=== PATIENT | male | born 1950 | race African-American/Black ===

== ENCOUNTER 2020-04-06 11:50 | Inpatient (IN) ==
[2020-04-06] MEDS ORDERED: VANCOMYCIN INJ 1,250 MG in SODIUM CHLORIDE 0.9% 250 ML IV STA (13:42)
[2020-04-06 14:11] LABS: Basophils % 0.3 % (0.0-0.8); Eosinophils % 0.1 % (0.00-10.9); Hematocrit 24.2 VOL% (42.0-52.0); Hemoglobin 7.9 GM/DL (14.0-18.0); Immature Granulocytes % 1.2 %; Immature Granulocytes Absolute 0.19 #; Lymphocytes # 0.4 10*3/uL (1.4-4.0); Lymphocytes % 2.3 % (21.2-54.2); Mean Corpuscular HGB Conc 32.6 GM/DL (32-36); Mean Corpuscular Volume 101.3 FL (87-102); Mean Platelet Volume 10.5 FL (9.6-12.0); Monocytes % 8.6 % (1.7-12.7); Neutrophils % 87.5 % (38.7-73.9); Platelet Count 136 T/CUMM (130-400); Red Blood Count 2.39 MC/CUMM (3.8-5.5); Red Cell Distribution Width 17.3 % (9.3-17.3); White Blood Count 15.5 T/CUMM (4-12)
[2020-04-06 14:31] LABS: Alanine Aminotransferase 35 U/L (16-61); Albumin 3.1 G/DL (3.4-5.0); Alkaline Phosphatase 179 U/L (45-117); Aspartate Amino Transferase 40 U/L (0-37); Blood Urea Nitrogen 19 MG/DL (7-18); Calcium 9.3 MG/DL (8.5-10.1); Carbon Dioxide 24 MMOL/L (21-32); Estimated Glom Filtration Rate 106 ML/MIN; Glucose 125 MG/DL (74-106); Potassium 4.3 MMOL/L (3.5-5.1); Sodium 136 MMOL/L (136-145); Total Protein 7.5 G/DL (6.4-8.3)
[2020-04-06 14:36] LABS: Lymphocytes 3 % (20-55); Segmented Neutrophils 87 % (50-85); Total Cells Counted 100
[2020-04-06 14:37] LABS: Anisocytosis 2+; Macrocytosis 2+; Microcytosis 1+; Platelet Estimate Adequate; Toxic Granulation 1+
[2020-04-06] MEDS ORDERED: DEXTROSE 50% 25 GM/50 ML VIAL IV PRN (15:36)
[2020-04-06] MEDS ORDERED: GLUCAGON 1 MG VIAL IM PRN (15:36)
[2020-04-06] MEDS ORDERED: ONDANSETRON 4 MG/2 ML VIAL IV PRN (15:36)
[2020-04-06] MEDS ORDERED: hydrALAZINE 20 MG/1 ML VIAL IV PRN (15:54)
[2020-04-06] MEDS ORDERED: PANTOPRAZOLE 40 MG TABLET PO SCH (16:00)
[2020-04-06] MEDS ORDERED: ACETAMINOPHEN 325 MG TABLET PO PRN (17:24)
[2020-04-06] MEDS ORDERED: ACETAMINOPHEN 500 MG TABLET PO STA (17:25)
[2020-04-06] MEDS: ATORVASTATIN 80 MG TABLET PO SCH (20:28)
[2020-04-06] MEDS: METOPROLOL TARTRATE 25 MG TABLET PO SCH (20:28)
[2020-04-06] MEDS: LOSARTAN 50 MG TABLET PO SCH (20:28)
[2020-04-06] MEDS: PANTOPRAZOLE 40 MG TABLET PO SCH (20:28)
[2020-04-06] MEDS: SODIUM CHLORIDE 0.9% 1,000 ML IV SCH (20:29)
[2020-04-06] MEDS: PIPERACILLIN/TAZOBACTAM 3,375 MG in SODIUM CHLORIDE 0.9% 100 ML IV SCH (20:29)
[2020-04-07 05:37] LABS: Basophils % 0.2 % (0.0-0.8); Eosinophils % 0.2 % (0.00-10.9); Hematocrit 20.3 VOL% (42.0-52.0); Hemoglobin 6.7 GM/DL (14.0-18.0); Immature Granulocytes % 0.8 %; Immature Granulocytes Absolute 0.11 #; Lymphocytes # 0.3 10*3/uL (1.4-4.0); Lymphocytes % 2.1 % (21.2-54.2); Mean Platelet Volume 10.5 FL (9.6-12.0); Monocytes % 9.8 % (1.7-12.7); Neutrophils % 86.9 % (38.7-73.9); Platelet Count 118 T/CUMM (130-400); Red Blood Count 2.03 MC/CUMM (3.8-5.5); Red Cell Distribution Width 17.2 % (9.3-17.3); White Blood Count 13.1 T/CUMM (4-12)
[2020-04-07 06:00] LABS: Albumin 2.5 G/DL (3.4-5.0); Bilirubin,Total 1.8 MG/DL (0.2-1.0); Potassium 4.1 MMOL/L (3.5-5.1); Risk Ratio 4.13; Total Protein 6.5 G/DL (6.4-8.3)
[2020-04-07 06:03] LABS: Band Neutrophils 24 % (0-10); Eosinophils 2 % (0-10); Metamyelocytes 1 %; Platelet Estimate Adequate; Segmented Neutrophils 67 % (50-85); Total Cells Counted 100; Toxic Granulation 1+
[2020-04-07 06:04] LABS: Anisocytosis 1+; Macrocytosis 1+; Target Cells Few; Tear Drop Cells Few
[2020-04-07] MEDS: PIPERACILLIN/TAZOBACTAM 3,375 MG in SODIUM CHLORIDE 0.9% 100 ML IV SCH ×2 (06:14→17:13)
[2020-04-07] MEDS ORDERED: LIDOCAINE 2% 5 ML VIAL ONE (06:22)
[2020-04-07] MEDS ORDERED: ONDANSETRON 4 MG/2 ML VIAL ONE (06:22)
[2020-04-07] MEDS ORDERED: propofoL 200 MG/20 ML VIAL IV ONE (06:22)
[2020-04-07] MEDS ORDERED: LACTATED RINGERS 1,000 ML IV SCH (07:00)
[2020-04-07] MEDS ORDERED: BUPIVACAINE MPF 0.25% 30 ML VIAL ONE (07:02)
[2020-04-07] MEDS ORDERED: LIDOCAINE 1% 20 ML VIAL ONE (07:02)
[2020-04-07] MEDS ORDERED: MIDAZOLAM 2 MG/2 ML VIAL ONE (07:25)
[2020-04-07] MEDS ORDERED: fentaNYL 100 MCG/2 ML VIAL ONE (07:33)
[2020-04-07] MEDS ORDERED: METOPROLOL TARTRATE 5 MG/5 ML VIAL IV ONE (08:15)
[2020-04-07] MEDS ORDERED: SODIUM CHLORIDE 0.9% 1,000 ML IV PRN (08:17)
[2020-04-07] MEDS: LOSARTAN 50 MG TABLET PO SCH (10:23)
[2020-04-07] MEDS: METOPROLOL TARTRATE 25 MG TABLET PO SCH ×2 (10:24→20:41)
[2020-04-07] MEDS: PANTOPRAZOLE 40 MG TABLET PO SCH (10:24)
[2020-04-07] MEDS ORDERED: DILTIAZEM 25 MG/5 ML VIAL IV ONE (14:39)
[2020-04-07] MEDS: SODIUM CHLORIDE 0.9% 1,000 ML IV SCH ×2 (16:50→18:06)
[2020-04-07] MEDS: ATORVASTATIN 80 MG TABLET PO SCH (20:41)
[2020-04-07] MEDS: VANCOMYCIN INJ 1,250 MG in SODIUM CHLORIDE 0.9% 250 ML IV SCH (20:48)
[2020-04-07 22:34] LABS: Bacteria,Urine Occasional /HPF (Few); Bilirubin,Urine Negative (Negative); Blood, Urine Negative (Negative); Glucose,Urine (UA) Negative (Negative); Ketones,Urine Negative (Negative); Mucus,Urine Occasional /LPF (Occasional); Nitrite,Urine Negative (Negative); Protein,Urine 100 MG/DL; RBC,Urine 3 /HPF (0-4); Squamous Epithelial Cell,Urine Occasional /HPF (0-10); Urine Appearance CLEAR (Clear); Urine Color Amber (Yellow); Urine Specific Gravity 1.024 (1.001-1.035); Urine Urobilinogen < 2.0 EU/DL (0.2-1.0); WBC,Urine 2 /HPF (0-6)
[2020-04-08] MEDS: PIPERACILLIN/TAZOBACTAM 3,375 MG in SODIUM CHLORIDE 0.9% 100 ML IV SCH ×3 (02:00→17:06)
[2020-04-08] MEDS: SODIUM CHLORIDE 0.9% 1,000 ML IV SCH ×3 (03:37→22:10)
[2020-04-08] MEDS: VANCOMYCIN INJ 1,250 MG in SODIUM CHLORIDE 0.9% 250 ML IV SCH ×2 (04:32→17:46)
[2020-04-08] MEDS: PANTOPRAZOLE 40 MG TABLET PO SCH (08:41)
[2020-04-08] MEDS: METOPROLOL TARTRATE 25 MG TABLET PO SCH ×2 (08:41→20:17)
[2020-04-08] MEDS: LOSARTAN 50 MG TABLET PO SCH (08:41)
[2020-04-08 08:54] LABS: Basophils % 0.4 % (0.0-0.8); Eosinophils % 0.4 % (0.00-10.9); Hematocrit 24.3 VOL% (42.0-52.0); Hemoglobin 8.1 GM/DL (14.0-18.0); Immature Granulocytes % 1.5 %; Immature Granulocytes Absolute 0.08 #; Lymphocytes # 0.2 10*3/uL (1.4-4.0); Lymphocytes % 3.1 % (21.2-54.2); Mean Corpuscular HGB Conc 33.3 GM/DL (32-36); Mean Platelet Volume 9.5 FL (9.6-12.0); Neutrophils % 80.6 % (38.7-73.9); Platelet Count 102 T/CUMM (130-400); Red Blood Count 2.53 MC/CUMM (3.8-5.5); Red Cell Distribution Width 17.4 % (9.3-17.3); White Blood Count 5.5 T/CUMM (4-12)
[2020-04-08 09:28] LABS: Albumin 2.2 G/DL (3.4-5.0); Bilirubin,Total 1.2 MG/DL (0.2-1.0); Calcium 8.6 MG/DL (8.5-10.1); Osmolality,Calculated 273.8 MOS/KG (273-304); Potassium 3.7 MMOL/L (3.5-5.1); Total Protein 6.2 G/DL (6.4-8.3)
[2020-04-08 09:30] LABS: Band Neutrophils 1 % (0-10); Eosinophils 2 % (0-10); Hypochromasia 1+; Lymphocytes 2 % (20-55); Microcytosis 1+; Ovalocytes Slight; Platelet Estimate Decreased; Segmented Neutrophils 82 % (50-85); Total Cells Counted 100
[2020-04-08] MEDS ORDERED: POTASSIUM CHLORIDE 20 MEQ TABLET PO ONE (10:28)
[2020-04-08] MEDS: ASCORBIC ACID 500 MG TABLET PO SCH ×2 (11:22→20:18)
[2020-04-08] MEDS: ATORVASTATIN 80 MG TABLET PO SCH (20:19)
[2020-04-09] MEDS: PIPERACILLIN/TAZOBACTAM 3,375 MG in SODIUM CHLORIDE 0.9% 100 ML IV SCH (02:07)
[2020-04-09 04:55] LABS: Basophils % 0.4 % (0.0-0.8); Eosinophils # 0.1 10*3/uL (0.0-0.87); Hematocrit 24.2 VOL% (42.0-52.0); Hemoglobin 8.1 GM/DL (14.0-18.0); Immature Granulocytes % 0.8 %; Immature Granulocytes Absolute 0.04 #; Lymphocytes # 0.3 10*3/uL (1.4-4.0); Mean Corpuscular HGB Conc 33.5 GM/DL (32-36); Mean Corpuscular Volume 95.3 FL (87-102); Mean Platelet Volume 9.7 FL (9.6-12.0); Monocytes % 14.5 % (1.7-12.7); Neutrophils % 77.3 % (38.7-73.9); Platelet Count 104 T/CUMM (130-400); Red Blood Count 2.54 MC/CUMM (3.8-5.5); Red Cell Distribution Width 16.8 % (9.3-17.3); White Blood Count 4.8 T/CUMM (4-12)
[2020-04-09] MEDS: VANCOMYCIN INJ 1,250 MG in SODIUM CHLORIDE 0.9% 250 ML IV SCH (05:07)
[2020-04-09 05:18] LABS: Band Neutrophils 1 % (0-10); Eosinophils 1 % (0-10); Lymphocytes 5 % (20-55); Platelet Estimate Adequate; Segmented Neutrophils 89 % (50-85); Total Cells Counted 100
[2020-04-09 05:19] LABS: Hypochromasia Slight
[2020-04-09 05:29] LABS: Albumin 2.4 G/DL (3.4-5.0); Calcium 8.4 MG/DL (8.5-10.1); Osmolality,Calculated 275.7 MOS/KG (273-304); Potassium 3.4 MMOL/L (3.5-5.1)
[2020-04-09] MEDS ORDERED: POTASSIUM CHLORIDE 20 MEQ TABLET PO ONE (08:00)
[2020-04-09] MEDS: METOPROLOL TARTRATE 25 MG TABLET PO SCH (08:29)
[2020-04-09] MEDS: ASCORBIC ACID 500 MG TABLET PO SCH ×2 (08:30→20:31)
[2020-04-09] MEDS: PANTOPRAZOLE 40 MG TABLET PO SCH (08:30)
[2020-04-09] MEDS: LOSARTAN 50 MG TABLET PO SCH (08:30)
[2020-04-09] MEDS: SODIUM CHLORIDE 0.9% 1,000 ML IV SCH ×2 (08:37→18:27)
[2020-04-09] MEDS ORDERED: LOSARTAN 50 MG TABLET PO SCH (10:45)
[2020-04-09] MEDS ORDERED: METOPROLOL TARTRATE 25 MG TABLET PO ONE (11:00)
[2020-04-09] MEDS ORDERED: POTASSIUM CHLORIDE 20 MEQ TABLET PO SCH (11:00)
[2020-04-09] MEDS ORDERED: LOSARTAN 50 MG TABLET PO ONE (11:00)
[2020-04-09] MEDS: POTASSIUM CHLORIDE 20 MEQ/15 ML UDCUP PER TUBE SCH ×2 (11:12→20:28)
[2020-04-09] MEDS: METOPROLOL TARTRATE 100 MG TABLET PO SCH (20:31)
[2020-04-10] MEDS: SODIUM CHLORIDE 0.9% 1,000 ML IV SCH ×3 (04:08→14:32)
[2020-04-10 05:45] LABS: Basophils % 0.4 % (0.0-0.8); Eosinophils # 0.1 10*3/uL (0.0-0.87); Eosinophils % 1.6 % (0.00-10.9); Hematocrit 24.5 VOL% (42.0-52.0); Hemoglobin 8.3 GM/DL (14.0-18.0); Immature Granulocytes % 0.9 %; Immature Granulocytes Absolute 0.04 #; Lymphocytes # 0.3 10*3/uL (1.4-4.0); Lymphocytes % 6.7 % (21.2-54.2); Mean Corpuscular HGB Conc 33.9 GM/DL (32-36); Mean Corpuscular Volume 95.3 FL (87-102); Mean Platelet Volume 10.2 FL (9.6-12.0); Monocytes % 14.5 % (1.7-12.7); Neutrophils % 75.9 % (38.7-73.9); Platelet Count 101 T/CUMM (130-400); Red Blood Count 2.57 MC/CUMM (3.8-5.5); Red Cell Distribution Width 16.5 % (9.3-17.3); White Blood Count 4.5 T/CUMM (4-12)
[2020-04-10 06:13] LABS: Eosinophils 2 % (0-10); Hypochromasia 1+; Lymphocytes 2 % (20-55); Microcytosis 1+; Platelet Estimate Decreased; Segmented Neutrophils 80 % (50-85); Total Cells Counted 100
[2020-04-10 06:16] LABS: Calcium 8.7 MG/DL (8.5-10.1); Osmolality,Calculated 274.5 MOS/KG (273-304); Potassium 3.8 MMOL/L (3.5-5.1)
[2020-04-10] MEDS ORDERED: MAGNESIUM SULF RIDER 2 GM in PREMIX 1 EACH IV ONE (08:12)
[2020-04-10] MEDS: ASCORBIC ACID 500 MG TABLET PO SCH ×2 (09:16→21:07)
[2020-04-10] MEDS: PANTOPRAZOLE 40 MG TABLET PO SCH (09:16)
[2020-04-10] MEDS: METOPROLOL TARTRATE 100 MG TABLET PO SCH ×2 (09:16→21:07)
[2020-04-10] MEDS: LOSARTAN 50 MG TABLET PO SCH (09:16)
[2020-04-10] MEDS: POTASSIUM CHLORIDE 20 MEQ/15 ML UDCUP PER TUBE SCH ×2 (09:17→21:07)
[2020-04-11] MEDS: SODIUM CHLORIDE 0.9% 1,000 ML IV SCH ×2 (01:39→10:47)
[2020-04-11 05:48] LABS: Basophils % 0.4 % (0.0-0.8); Eosinophils # 0.1 10*3/uL (0.0-0.87); Eosinophils % 2.6 % (0.00-10.9); Hemoglobin 8.6 GM/DL (14.0-18.0); Immature Granulocytes % 0.6 %; Immature Granulocytes Absolute 0.03 #; Lymphocytes # 0.4 10*3/uL (1.4-4.0); Lymphocytes % 8.2 % (21.2-54.2); Mean Corpuscular HGB Conc 34.4 GM/DL (32-36); Monocytes % 11.6 % (1.7-12.7); Neutrophils % 76.6 % (38.7-73.9); Platelet Count 97 T/CUMM (130-400); Red Blood Count 2.66 MC/CUMM (3.8-5.5); Red Cell Distribution Width 15.9 % (9.3-17.3)
[2020-04-11 06:19] LABS: Anisocytosis 1+; Band Neutrophils 1 % (0-10); Eosinophils 3 % (0-10); Lymphocytes 9 % (20-55); Macrocytosis 1+; Platelet Estimate Decreased; Segmented Neutrophils 75 % (50-85); Total Cells Counted 100
[2020-04-11 06:20] LABS: Calcium 8.7 MG/DL (8.5-10.1); Osmolality,Calculated 272.7 MOS/KG (273-304); Potassium 3.4 MMOL/L (3.5-5.1)
[2020-04-11] MEDS ORDERED: POTASSIUM CHLORIDE 20 MEQ/15 ML UDCUP PO ONE (08:00)
[2020-04-11] MEDS: POTASSIUM CHLORIDE 20 MEQ/15 ML UDCUP PER TUBE SCH (08:48)
[2020-04-11] MEDS: PANTOPRAZOLE 40 MG TABLET PO SCH (08:49)
[2020-04-11] MEDS: ASCORBIC ACID 500 MG TABLET PO SCH (08:49)
[2020-04-11] MEDS: LOSARTAN 50 MG TABLET PO SCH (08:50)
[2020-04-11] MEDS: METOPROLOL TARTRATE 100 MG TABLET PO SCH (08:51)
[2020-04-11 12:24] VITALS: BP 152/78
== END 2020-04-11 14:33 | disposition home health service (06) | DRG 314 ==
LOC: N.ED 11:50 → N.EDINP 15:36 → SUATTDRO 15:36 → N.EDINP 17:38 → N.4E 18:07 → N.TELEN 04-07 15:14
PROVIDERS: ADMIT Internal Medicine; ATTEND Family Medicine

== ENCOUNTER 2020-12-26 19:59 | Inpatient (IN) ==
[2020-12-26 20:57] LABS: Basophils % 0.2 % (0.0-0.8); Hematocrit 24.5 VOL% (42.0-52.0); Hemoglobin 7.7 GM/DL (14.0-18.0); Immature Granulocytes % 4.8 %; Immature Granulocytes Absolute 0.27 #; Lymphocytes # 0.4 10*3/uL (1.4-4.0); Lymphocytes % 6.5 % (21.2-54.2); Mean Corpuscular HGB Conc 31.4 GM/DL (32-36); Mean Corpuscular Volume 98.4 FL (87-102); Mean Platelet Volume 9.7 FL (9.6-12.0); Monocytes % 6.8 % (1.7-12.7); NRBC # 0.02 10*3/uL; Neutrophils % 81.7 % (38.7-73.9); Platelet Count 221 T/CUMM (130-400); Red Blood Count 2.49 MC/CUMM (3.8-5.5); Red Cell Distribution Width 17.5 % (9.3-17.3); White Blood Count 5.6 T/CUMM (4-12)
[2020-12-26] MEDS ORDERED: SODIUM CHLORIDE 0.9% 1,000 ML IV STA (21:07)
[2020-12-26 21:09] LABS: INR 1.2; PT Patient Result 13.5 SECS (10.5-12.0); Partial Thromboplastin Time 25.5 SECS (23.8-32.1)
[2020-12-26 21:12] LABS: Band Neutrophils 6 % (0-10); Lymphocytes 6 % (20-55); Metamyelocytes 2 %; Myelocytes 3 %; Nucleated Red Blood Cells 1 (0-5); Segmented Neutrophils 75 % (50-85); Total Cells Counted 100
[2020-12-26 21:13] LABS: Anisocytosis 2+; Platelet Estimate Normal; Polychromasia 1+
[2020-12-26 21:14] LABS: Poikilocytosis 1+; Spherocytes 1+
[2020-12-26 21:29] LABS: Albumin 1.7 G/DL (3.4-5.0); Bilirubin,Total 0.5 MG/DL (0.20-1.00); Calcium 8.4 MG/DL (8.5-10.1); Potassium 4.4 MMOL/L (3.5-5.1); Total Protein 5.5 G/DL (6.4-8.2)
[2020-12-26 21:47] LABS: Thyroid Stimulating Hormone 5.42 uIU/ml (0.358-3.74)
[2020-12-26] MEDS: DILTIAZEM INJ 100 MG in SODIUM CHLORIDE 0.9% 100 ML IV SCH (22:10)
[2020-12-26] MEDS: SODIUM CHLORIDE 0.9% 1,000 ML IV SCH (23:00)
[2020-12-27] MEDS ORDERED: DEXTROSE 50% 25 GM/50 ML VIAL IV PRN (00:29)
[2020-12-27] MEDS ORDERED: guaiFENesin/DM ER 600-30 MG TABLET PO PRN (00:29)
[2020-12-27] MEDS ORDERED: ACETAMINOPHEN 325 MG TABLET PO PRN (00:29)
[2020-12-27] MEDS ORDERED: ONDANSETRON 4 MG/2 ML VIAL IV PRN (00:29)
[2020-12-27] MEDS ORDERED: MAGNESIUM SULF RIDER 2 GM/50 ML PREMIX IV ONE ×2 (00:35→03:53)
[2020-12-27] MEDS ORDERED: DIGOXIN 0.5 MG/2 ML AMP IV ONE ×2 (00:35→05:26)
[2020-12-27] MEDS ORDERED: SODIUM CHLORIDE 0.9% 1,000 ML IV STA (00:55)
[2020-12-27] MEDS ORDERED: SODIUM CHLORIDE 0.9% 500 ML IV STA (00:55)
[2020-12-27] MEDS: ALBUTEROL/IPRATROPIUM 3 ML NEB RESP TX SCH ×4 (02:13→20:00)
[2020-12-27] MEDS: SODIUM CHLORIDE 0.9% 1,000 ML IV SCH ×3 (02:57→21:31)
[2020-12-27] MEDS: PIPERACILLIN/TAZOBACTAM 3,375 MG in SODIUM CHLORIDE 0.9% 100 ML IV SCH ×3 (02:57→17:02)
[2020-12-27 03:02] LABS: Basophils % 0.2 % (0.0-0.8); Eosinophils % 0.2 % (0.00-10.9); Hematocrit 26.5 VOL% (42.0-52.0); Hemoglobin 8.2 GM/DL (14.0-18.0); Immature Granulocytes % 5.9 %; Immature Granulocytes Absolute 0.29 #; Mean Corpuscular HGB Conc 30.9 GM/DL (32-36); Mean Corpuscular Volume 100.8 FL (87-102); Mean Platelet Volume 9.9 FL (9.6-12.0); Monocytes % 7.7 % (1.7-12.7); Platelet Count 220 T/CUMM (130-400); Red Blood Count 2.63 MC/CUMM (3.8-5.5); Red Cell Distribution Width 17.8 % (9.3-17.3); White Blood Count 4.9 T/CUMM (4-12)
[2020-12-27 03:18] LABS: ABG Base Excess 3.5 MMOL/L (-2.5-2.5); ABG HCO3 27.5 MMOL/L (20-26); ABG Oxygen Saturation 92.3 % (95-100); ABG PH 7.345 (7.35-7.45); ABG PO2 69.8 MM HG (80-95); ABG TCO2 28.2 MMOL/L (23-27)
[2020-12-27 03:29] LABS: Band Neutrophils 3 % (0-10); Lymphocytes 23 % (20-55); Metamyelocytes 2 %; Segmented Neutrophils 64 % (50-85); Total Cells Counted 100
[2020-12-27 03:30] LABS: Hypochromasia 2+; Platelet Estimate Adequate
[2020-12-27 03:31] LABS: Calcium 9.1 MG/DL (8.5-10.1); Osmolality,Calculated 276.7 MOS/KG (273-304); Potassium 3.7 MMOL/L (3.5-5.1)
[2020-12-27] MEDS ORDERED: METOPROLOL TARTRATE 5 MG/5 ML VIAL IV STA (03:53)
[2020-12-27] MEDS: DILTIAZEM INJ 100 MG in SODIUM CHLORIDE 0.9% 100 ML IV SCH ×2 (05:56→12:56)
[2020-12-27 06:08] LABS: ABG Base Excess 3.7 MMOL/L (-2.5-2.5); ABG HCO3 27.7 MMOL/L (20-26); ABG Oxygen Saturation 98.4 % (95-100); ABG PCO2 40.9 MM HG (35-48); ABG PH 7.444 (7.35-7.45); ABG TCO2 26.2 MMOL/L (23-27)
[2020-12-27] MEDS: VANCOMYCIN INJ 1,000 MG in SODIUM CHLORIDE 0.9% 250 ML IV SCH ×2 (08:06→21:09)
[2020-12-27 08:09] LABS: Free T4 (Free Thyroxine) 1.31 NG/DL (0.76-1.46)
[2020-12-27] MEDS ORDERED: PANTOPRAZOLE 40 MG TABLET PO SCH (09:00)
[2020-12-27] MEDS: METOPROLOL TARTRATE 100 MG TABLET PO SCH ×2 (10:06→20:48)
[2020-12-27] MEDS: ASCORBIC ACID 500 MG TABLET PO SCH ×2 (10:06→20:47)
[2020-12-27] MEDS: GABAPENTIN 300 MG CAPSULE PO SCH (10:07)
[2020-12-27] MEDS: OMEPRAZOLE ODT 20 MG TABLET PER TUBE SCH ×2 (12:13→20:48)
[2020-12-27] MEDS: DILTIAZEM 90 MG TABLET PO SCH ×4 (12:13→20:48)
[2020-12-27] MEDS: LATANOPROST 0.005% OPH SOLN 2.5 ML BOTTLE BOTH EYES SCH (20:48)
[2020-12-28] MEDS: ALBUTEROL/IPRATROPIUM 3 ML NEB RESP TX SCH ×4 (00:55→19:54)
[2020-12-28] MEDS ORDERED: FUROSEMIDE 40 MG/4 ML VIAL ONE (00:59)
[2020-12-28] MEDS ORDERED: FUROSEMIDE 40 MG/4 ML VIAL IV ONE (01:05)
[2020-12-28] MEDS: PIPERACILLIN/TAZOBACTAM 3,375 MG in SODIUM CHLORIDE 0.9% 100 ML IV SCH ×3 (02:04→16:33)
[2020-12-28] MEDS: DILTIAZEM INJ 100 MG in SODIUM CHLORIDE 0.9% 100 ML IV SCH (02:04)
[2020-12-28 04:11] LABS: ABG Base Excess 4.5 MMOL/L (-2.5-2.5); ABG HCO3 28.4 MMOL/L (20-26); ABG Oxygen Saturation 99.4 % (95-100); ABG PCO2 39.1 MM HG (35-48); ABG PH 7.479 (7.35-7.45); ABG PO2 370.4 MM HG (80-95); ABG TCO2 29.6 MMOL/L (23-27)
[2020-12-28 04:51] LABS: Basophils % 0.3 % (0.0-0.8); Eosinophils % 0.3 % (0.00-10.9); Hematocrit 19.6 VOL% (42.0-52.0); Immature Granulocytes Absolute 0.12 #; Lymphocytes # 0.4 10*3/uL (1.4-4.0); Lymphocytes % 9.6 % (21.2-54.2); Mean Corpuscular HGB Conc 31.1 GM/DL (32-36); Mean Platelet Volume 9.9 FL (9.6-12.0); Monocytes % 8.3 % (1.7-12.7); Neutrophils % 78.5 % (38.7-73.9); Platelet Count 165 T/CUMM (130-400); Red Blood Count 1.94 MC/CUMM (3.8-5.5); Red Cell Distribution Width 17.4 % (9.3-17.3)
[2020-12-28 04:55] LABS: Hemoglobin 6.1 GM/DL (14.0-18.0)
[2020-12-28] MEDS ORDERED: SODIUM CHLORIDE 0.9% 1,000 ML IV PRN (04:59)
[2020-12-28 05:07] LABS: Osmolality,Calculated 281.4 MOS/KG (273-304); Potassium 3.6 MMOL/L (3.5-5.1)
[2020-12-28 05:08] LABS: Osmolality,Calculated 281.4 MOS/KG (273-304); Potassium 3.6 MMOL/L (3.5-5.1)
[2020-12-28 05:11] LABS: Band Neutrophils 18 % (0-10); Lymphocytes 2 % (20-55); Myelocytes 1 %; Nucleated Red Blood Cells 1 (0-5); Segmented Neutrophils 68 % (50-85); Total Cells Counted 100
[2020-12-28 05:12] LABS: Anisocytosis 1+; Microcytosis 1+; Ovalocytes Slight; Platelet Estimate Adequate; Polychromasia Slight
[2020-12-28] MEDS: SODIUM CHLORIDE 0.9% 1,000 ML IV SCH ×2 (05:54→21:10)
[2020-12-28] MEDS: VANCOMYCIN INJ 1,000 MG in SODIUM CHLORIDE 0.9% 250 ML IV SCH ×2 (05:54→18:46)
[2020-12-28] MEDS ORDERED: MAGNESIUM SULF RIDER 2 GM/50 ML PREMIX IV ONE (07:01)
[2020-12-28] MEDS: ASCORBIC ACID 500 MG TABLET PO SCH ×2 (10:10→20:31)
[2020-12-28] MEDS: DILTIAZEM 90 MG TABLET PO SCH ×4 (10:11→20:31)
[2020-12-28] MEDS: OMEPRAZOLE ODT 20 MG TABLET PER TUBE SCH ×2 (10:11→20:31)
[2020-12-28] MEDS: GABAPENTIN 300 MG CAPSULE PO SCH (10:11)
[2020-12-28] MEDS: METOPROLOL TARTRATE 100 MG TABLET PO SCH ×2 (10:12→20:31)
[2020-12-28] MEDS: LATANOPROST 0.005% OPH SOLN 2.5 ML BOTTLE BOTH EYES SCH (20:31)
[2020-12-29] MEDS: PIPERACILLIN/TAZOBACTAM 3,375 MG in SODIUM CHLORIDE 0.9% 100 ML IV SCH ×3 (00:35→17:40)
[2020-12-29] MEDS: DILTIAZEM INJ 100 MG in SODIUM CHLORIDE 0.9% 100 ML IV SCH ×2 (00:58→23:18)
[2020-12-29] MEDS: ALBUTEROL/IPRATROPIUM 3 ML NEB RESP TX SCH ×4 (01:53→18:52)
[2020-12-29] MEDS ORDERED: FUROSEMIDE 40 MG/4 ML VIAL IV ONE (03:47)
[2020-12-29] MEDS ORDERED: HYDROmorphone 2 MG/1 ML VIAL IV ONE (04:26)
[2020-12-29 04:46] LABS: ABG Base Excess 4.2 MMOL/L (-2.5-2.5); ABG HCO3 29.4 MMOL/L (20-26); ABG PH 7.414 (7.35-7.45); ABG PO2 65.6 MM HG (80-95); ABG TCO2 30.8 MMOL/L (23-27)
[2020-12-29 05:25] LABS: Basophils % 0.9 % (0.0-0.8); Eosinophils # 0.1 10*3/uL (0.0-0.87); Eosinophils % 1.1 % (0.00-10.9); Hematocrit 31.9 VOL% (42.0-52.0); Immature Granulocytes % 4.3 %; Lymphocytes # 0.6 10*3/uL (1.4-4.0); Lymphocytes % 13.2 % (21.2-54.2); Mean Corpuscular HGB Conc 31.7 GM/DL (32-36); Mean Corpuscular Volume 94.9 FL (87-102); Mean Platelet Volume 10.1 FL (9.6-12.0); Monocytes % 8.7 % (1.7-12.7); NRBC # 0.02 10*3/uL; Neutrophils % 71.8 % (38.7-73.9); Red Cell Distribution Width 18.5 % (9.3-17.3); White Blood Count 4.7 T/CUMM (4-12)
[2020-12-29 05:27] LABS: Red Blood Count 3.36 MC/CUMM (3.8-5.5)
[2020-12-29 05:28] LABS: Hemoglobin 10.1 GM/DL (14.0-18.0); Platelet Count 201 T/CUMM (130-400)
[2020-12-29 05:37] LABS: Calcium 8.9 MG/DL (8.5-10.1); Osmolality,Calculated 272.8 MOS/KG (273-304); Potassium 3.6 MMOL/L (3.5-5.1)
[2020-12-29] MEDS: SODIUM CHLORIDE 0.9% 1,000 ML IV SCH ×2 (05:42→17:37)
[2020-12-29] MEDS: VANCOMYCIN INJ 1,000 MG in SODIUM CHLORIDE 0.9% 250 ML IV SCH (05:55)
[2020-12-29 05:57] LABS: Band Neutrophils 4 % (0-10); Eosinophils 2 % (0-10); Lymphocytes 15 % (20-55); Nucleated Red Blood Cells 1 (0-5); Platelet Estimate Normal; Segmented Neutrophils 73 % (50-85); Total Cells Counted 100
[2020-12-29] MEDS: DILTIAZEM 90 MG TABLET PO SCH ×4 (11:09→21:11)
[2020-12-29] MEDS: GABAPENTIN 300 MG CAPSULE PO SCH (11:15)
[2020-12-29] MEDS: METOPROLOL TARTRATE 100 MG TABLET PO SCH ×2 (11:15→21:10)
[2020-12-29] MEDS: OMEPRAZOLE ODT 20 MG TABLET PER TUBE SCH ×2 (11:15→21:10)
[2020-12-29] MEDS: ASCORBIC ACID 500 MG TABLET PO SCH ×2 (11:15→21:10)
[2020-12-29] MEDS: TAMSULOSIN 0.4 MG CAPSULE PO SCH (11:16)
[2020-12-29] MEDS: methylPREDNISolone SOD SUC 40 MG/1 ML VIAL IV SCH ×2 (17:36→21:26)
[2020-12-29] MEDS: LATANOPROST 0.005% OPH SOLN 2.5 ML BOTTLE BOTH EYES SCH (21:48)
[2020-12-30] MEDS: PIPERACILLIN/TAZOBACTAM 3,375 MG in SODIUM CHLORIDE 0.9% 100 ML IV SCH ×3 (01:04→20:06)
[2020-12-30] MEDS: SODIUM CHLORIDE 0.9% 1,000 ML IV SCH ×2 (01:05→17:19)
[2020-12-30] MEDS: ALBUTEROL/IPRATROPIUM 3 ML NEB RESP TX SCH ×4 (02:00→19:10)
[2020-12-30 04:28] LABS: Basophils % 0.2 % (0.0-0.8); Hematocrit 31.4 VOL% (42.0-52.0); Hemoglobin 9.9 GM/DL (14.0-18.0); Immature Granulocytes % 2.1 %; Lymphocytes # 0.3 10*3/uL (1.4-4.0); Lymphocytes % 6.2 % (21.2-54.2); Mean Corpuscular HGB Conc 31.5 GM/DL (32-36); Mean Corpuscular Volume 94.6 FL (87-102); Mean Platelet Volume 9.6 FL (9.6-12.0); Monocytes % 1.5 % (1.7-12.7); Platelet Count 198 T/CUMM (130-400); Red Blood Count 3.32 MC/CUMM (3.8-5.5); Red Cell Distribution Width 17.7 % (9.3-17.3); White Blood Count 4.8 T/CUMM (4-12)
[2020-12-30 04:49] LABS: Calcium 9.3 MG/DL (8.5-10.1); Osmolality,Calculated 274.8 MOS/KG (273-304); Potassium 3.6 MMOL/L (3.5-5.1)
[2020-12-30 04:57] LABS: Band Neutrophils 5 % (0-10); Hypochromasia Slight; Lymphocytes 8 % (20-55); Myelocytes 1 %; Segmented Neutrophils 85 % (50-85); Total Cells Counted 100
[2020-12-30 04:58] LABS: Microcytosis 1+; Ovalocytes Slight
[2020-12-30] MEDS: methylPREDNISolone SOD SUC 40 MG/1 ML VIAL IV SCH ×3 (05:29→21:44)
[2020-12-30] MEDS ORDERED: MAGNESIUM SULF RIDER 2 GM/50 ML PREMIX IV ONE (08:58)
[2020-12-30] MEDS ORDERED: POTASSIUM CHLORIDE 10 MEQ TABLET PO ONE (08:59)
[2020-12-30] MEDS ORDERED: FUROSEMIDE 40 MG TABLET PO SCH (09:00)
[2020-12-30] MEDS: GABAPENTIN 300 MG CAPSULE PO SCH (11:38)
[2020-12-30] MEDS: OMEPRAZOLE ODT 20 MG TABLET PER TUBE SCH ×2 (11:38→21:26)
[2020-12-30] MEDS: DILTIAZEM 90 MG TABLET PO SCH ×4 (11:38→21:25)
[2020-12-30] MEDS: METOPROLOL TARTRATE 100 MG TABLET PO SCH ×2 (11:38→21:26)
[2020-12-30] MEDS: TAMSULOSIN 0.4 MG CAPSULE PO SCH (11:38)
[2020-12-30] MEDS: ASCORBIC ACID 500 MG TABLET PO SCH ×2 (11:39→21:26)
[2020-12-30] MEDS: FUROSEMIDE 40 MG/4 ML VIAL IV SCH (11:47)
[2020-12-30] MEDS: ACETYLCYSTEINE 20% 800 MG/4 ML VIAL RESP TX SCH (13:24)
[2020-12-30] MEDS: LATANOPROST 0.005% OPH SOLN 2.5 ML BOTTLE BOTH EYES SCH (22:21)
[2020-12-31] MEDS: ACETYLCYSTEINE 20% 800 MG/4 ML VIAL RESP TX SCH ×3 (01:41→16:38)
[2020-12-31] MEDS: ALBUTEROL/IPRATROPIUM 3 ML NEB RESP TX SCH ×4 (01:41→19:13)
[2020-12-31] MEDS: PIPERACILLIN/TAZOBACTAM 3,375 MG in SODIUM CHLORIDE 0.9% 100 ML IV SCH ×3 (02:58→18:27)
[2020-12-31] MEDS: SODIUM CHLORIDE 0.9% 1,000 ML IV SCH (03:49)
[2020-12-31] MEDS: methylPREDNISolone SOD SUC 40 MG/1 ML VIAL IV SCH ×3 (06:52→23:42)
[2020-12-31 07:00] LABS: Basophils % 0.3 % (0.0-0.8); Hematocrit 30.9 VOL% (42.0-52.0); Hemoglobin 10.2 GM/DL (14.0-18.0); Immature Granulocytes % 1.4 %; Lymphocytes # 0.4 10*3/uL (1.4-4.0); Lymphocytes % 5.4 % (21.2-54.2); Mean Corpuscular Volume 93.9 FL (87-102); Mean Platelet Volume 9.7 FL (9.6-12.0); Monocytes % 4.8 % (1.7-12.7); Neutrophils % 88.1 % (38.7-73.9); Platelet Count 193 T/CUMM (130-400); Red Blood Count 3.29 MC/CUMM (3.8-5.5); Red Cell Distribution Width 17.2 % (9.3-17.3); White Blood Count 7.3 T/CUMM (4-12)
[2020-12-31 07:15] LABS: Calcium 9.3 MG/DL (8.5-10.1); Osmolality,Calculated 285.7 MOS/KG (273-304); Potassium 3.5 MMOL/L (3.5-5.1)
[2020-12-31] MEDS: DILTIAZEM 90 MG TABLET PO SCH ×4 (10:34→22:33)
[2020-12-31] MEDS: FUROSEMIDE 40 MG/4 ML VIAL IV SCH (10:34)
[2020-12-31] MEDS: METOPROLOL TARTRATE 100 MG TABLET PO SCH ×2 (10:34→22:34)
[2020-12-31] MEDS: DILTIAZEM INJ 100 MG in SODIUM CHLORIDE 0.9% 100 ML IV SCH (10:34)
[2020-12-31] MEDS: TAMSULOSIN 0.4 MG CAPSULE PO SCH (10:34)
[2020-12-31] MEDS: GABAPENTIN 300 MG CAPSULE PO SCH (10:35)
[2020-12-31] MEDS: OMEPRAZOLE ODT 20 MG TABLET PER TUBE SCH ×2 (10:35→22:33)
[2020-12-31] MEDS: ASCORBIC ACID 500 MG TABLET PO SCH ×2 (10:35→22:34)
[2020-12-31] MEDS: INSULIN LISPRO 100 UNIT/ML SUBCUT SCH ×3 (11:58→21:54)
[2020-12-31 13:37] LABS: Bilirubin,Urine Negative (Negative); Blood, Urine Moderate mg/dL (Negative); Calcium Oxalate Crystals,Urine Occasional /HPF (Few); Glucose,Urine (UA) >=500 mg/dL (Negative); Hyaline Casts,Urine 5 /LPF (0-3); Ketones,Urine Negative (Negative); Mucus,Urine Occasional /LPF (Occasional); Nitrite,Urine Negative (Negative); Protein,Urine 30 MG/DL; RBC,Urine 427 /HPF (0-4); Urine Appearance CLOUDY (Clear); Urine Color Yellow (Yellow); Urine Specific Gravity 1.026 (1.001-1.035)
[2020-12-31] MEDS: LATANOPROST 0.005% OPH SOLN 2.5 ML BOTTLE BOTH EYES SCH (22:34)
[2021-01-01] MEDS: ACETYLCYSTEINE 20% 800 MG/4 ML VIAL RESP TX SCH ×3 (00:14→14:08)
[2021-01-01] MEDS: ALBUTEROL/IPRATROPIUM 3 ML NEB RESP TX SCH ×4 (00:14→19:50)
[2021-01-01] MEDS: PIPERACILLIN/TAZOBACTAM 3,375 MG in SODIUM CHLORIDE 0.9% 100 ML IV SCH ×3 (02:01→16:50)
[2021-01-01 05:15] LABS: Basophils % 0.1 % (0.0-0.8); Hematocrit 30.3 VOL% (42.0-52.0); Hemoglobin 9.7 GM/DL (14.0-18.0); Immature Granulocytes % 1.9 %; Immature Granulocytes Absolute 0.16 #; Lymphocytes # 0.2 10*3/uL (1.4-4.0); Lymphocytes % 1.8 % (21.2-54.2); Mean Platelet Volume 9.9 FL (9.6-12.0); Monocytes % 5.4 % (1.7-12.7); Neutrophils % 90.8 % (38.7-73.9); Platelet Count 185 T/CUMM (130-400); Red Blood Count 3.19 MC/CUMM (3.8-5.5); Red Cell Distribution Width 17.2 % (9.3-17.3); White Blood Count 8.6 T/CUMM (4-12)
[2021-01-01] MEDS: SODIUM CHLORIDE 0.9% 1,000 ML IV SCH ×2 (05:37→15:09)
[2021-01-01 05:40] LABS: Hypochromasia 1+; Lymphocytes 2 % (20-55); Microcytosis 1+; Platelet Estimate Adequate; Segmented Neutrophils 93 % (50-85); Total Cells Counted 100
[2021-01-01 05:44] LABS: Calcium 9.3 MG/DL (8.5-10.1); Osmolality,Calculated 285.5 MOS/KG (273-304); Potassium 3.3 MMOL/L (3.5-5.1)
[2021-01-01] MEDS: DILTIAZEM INJ 100 MG in SODIUM CHLORIDE 0.9% 100 ML IV SCH (06:14)
[2021-01-01] MEDS: GABAPENTIN 300 MG CAPSULE PO SCH (09:21)
[2021-01-01] MEDS: METOPROLOL TARTRATE 100 MG TABLET PO SCH ×2 (09:21→20:53)
[2021-01-01] MEDS: TAMSULOSIN 0.4 MG CAPSULE PO SCH (09:21)
[2021-01-01] MEDS: FUROSEMIDE 40 MG/4 ML VIAL IV SCH (09:21)
[2021-01-01] MEDS: OMEPRAZOLE ODT 20 MG TABLET PER TUBE SCH ×2 (09:21→20:52)
[2021-01-01] MEDS: DILTIAZEM 90 MG TABLET PO SCH ×4 (09:21→20:53)
[2021-01-01] MEDS: ASCORBIC ACID 500 MG TABLET PO SCH ×2 (09:21→20:53)
[2021-01-01] MEDS: methylPREDNISolone SOD SUC 40 MG/1 ML VIAL IV SCH ×2 (09:22→14:17)
[2021-01-01] MEDS: INSULIN LISPRO 100 UNIT/ML SUBCUT SCH ×4 (09:53→21:25)
[2021-01-01] MEDS: POTASSIUM CHLORIDE 20 MEQ TABLET PO PRN ×3 (16:49→18:50)
[2021-01-01] MEDS: LATANOPROST 0.005% OPH SOLN 2.5 ML BOTTLE BOTH EYES SCH (20:54)
[2021-01-02] MEDS: PIPERACILLIN/TAZOBACTAM 3,375 MG in SODIUM CHLORIDE 0.9% 100 ML IV SCH ×3 (00:18→18:06)
[2021-01-02] MEDS: methylPREDNISolone SOD SUC 40 MG/1 ML VIAL IV SCH ×3 (00:18→21:36)
[2021-01-02] MEDS: ALBUTEROL/IPRATROPIUM 3 ML NEB RESP TX SCH ×5 (01:42→23:50)
[2021-01-02] MEDS: ACETYLCYSTEINE 20% 800 MG/4 ML VIAL RESP TX SCH ×4 (01:42→23:50)
[2021-01-02 05:59] LABS: Calcium 9.3 MG/DL (8.5-10.1); Osmolality,Calculated 284.7 MOS/KG (273-304); Potassium 3.5 MMOL/L (3.5-5.1)
[2021-01-02 08:13] LABS: Basophils % 0.3 % (0.0-0.8); Hemoglobin 10.8 GM/DL (14.0-18.0); Immature Granulocytes % 3.8 %; Immature Granulocytes Absolute 0.29 #; Lymphocytes # 0.3 10*3/uL (1.4-4.0); Lymphocytes % 4.2 % (21.2-54.2); Mean Corpuscular HGB Conc 32.7 GM/DL (32-36); Mean Corpuscular Volume 93.8 FL (87-102); Mean Platelet Volume 9.4 FL (9.6-12.0); Monocytes % 4.5 % (1.7-12.7); NRBC # 0.06 10*3/uL; Neutrophils % 87.2 % (38.7-73.9); Platelet Count 186 T/CUMM (130-400); Red Blood Count 3.52 MC/CUMM (3.8-5.5); Red Cell Distribution Width 17.1 % (9.3-17.3); White Blood Count 7.6 T/CUMM (4-12)
[2021-01-02 08:32] LABS: Band Neutrophils 1 % (0-10); Lymphocytes 6 % (20-55); Nucleated Red Blood Cells 1 (0-5); Platelet Estimate Adequate; Segmented Neutrophils 89 % (50-85); Total Cells Counted 100
[2021-01-02 08:33] LABS: Hypochromasia 1+; Microcytosis 1+
[2021-01-02] MEDS: GABAPENTIN 300 MG CAPSULE PO SCH (08:58)
[2021-01-02] MEDS: FUROSEMIDE 40 MG/4 ML VIAL IV SCH (08:58)
[2021-01-02] MEDS: ASCORBIC ACID 500 MG TABLET PO SCH ×2 (08:58→21:36)
[2021-01-02] MEDS: OMEPRAZOLE ODT 20 MG TABLET PER TUBE SCH ×2 (08:58→21:34)
[2021-01-02] MEDS: METOPROLOL TARTRATE 100 MG TABLET PO SCH ×2 (08:58→21:34)
[2021-01-02] MEDS: DILTIAZEM 90 MG TABLET PO SCH ×4 (08:58→21:34)
[2021-01-02] MEDS: TAMSULOSIN 0.4 MG CAPSULE PO SCH (08:58)
[2021-01-02] MEDS ORDERED: POTASSIUM PHOSPHATE 15 MMOL in SODIUM CHLORIDE 0.9% 100 ML IV ONE (10:00)
[2021-01-02] MEDS: INSULIN LISPRO 100 UNIT/ML SUBCUT SCH ×4 (10:37→21:35)
[2021-01-02] MEDS: INSULIN GLARGINE 100 UNIT/ML SUBCUT SCH (10:37)
[2021-01-02] MEDS: LATANOPROST 0.005% OPH SOLN 2.5 ML BOTTLE BOTH EYES SCH (21:36)
[2021-01-03] MEDS: PIPERACILLIN/TAZOBACTAM 3,375 MG in SODIUM CHLORIDE 0.9% 100 ML IV SCH ×2 (00:18→09:42)
[2021-01-03 05:38] LABS: Basophils % 0.1 % (0.0-0.8); Hemoglobin 10.2 GM/DL (14.0-18.0); Immature Granulocytes % 3.2 %; Immature Granulocytes Absolute 0.26 #; Lymphocytes # 0.2 10*3/uL (1.4-4.0); Lymphocytes % 2.9 % (21.2-54.2); Mean Corpuscular HGB Conc 31.9 GM/DL (32-36); Mean Corpuscular Volume 94.7 FL (87-102); Mean Platelet Volume 10.1 FL (9.6-12.0); Monocytes % 4.9 % (1.7-12.7); NRBC # 0.12 10*3/uL; Neutrophils % 88.9 % (38.7-73.9); Platelet Count 188 T/CUMM (130-400); Red Blood Count 3.38 MC/CUMM (3.8-5.5)
[2021-01-03 06:03] LABS: Calcium 9.1 MG/DL (8.5-10.1); Osmolality,Calculated 287.5 MOS/KG (273-304); Potassium 3.3 MMOL/L (3.5-5.1)
[2021-01-03 06:11] LABS: Band Neutrophils 3 % (0-10); Hypochromasia 1+; Lymphocytes 3 % (20-55); Microcytosis 1+; Nucleated Red Blood Cells 2 (0-5); Segmented Neutrophils 85 % (50-85); Total Cells Counted 100
[2021-01-03 06:12] LABS: Ovalocytes Slight
[2021-01-03] MEDS: ALBUTEROL/IPRATROPIUM 3 ML NEB RESP TX SCH ×3 (07:48→19:33)
[2021-01-03] MEDS: ACETYLCYSTEINE 20% 800 MG/4 ML VIAL RESP TX SCH ×2 (07:48→13:45)
[2021-01-03] MEDS: INSULIN GLARGINE 100 UNIT/ML SUBCUT SCH (09:41)
[2021-01-03] MEDS: FUROSEMIDE 40 MG/4 ML VIAL IV SCH (09:41)
[2021-01-03] MEDS: methylPREDNISolone SOD SUC 40 MG/1 ML VIAL IV SCH ×2 (09:41→21:26)
[2021-01-03] MEDS: INSULIN LISPRO 100 UNIT/ML SUBCUT SCH ×5 (09:41→21:26)
[2021-01-03] MEDS: DILTIAZEM 90 MG TABLET PO SCH ×4 (09:41→20:47)
[2021-01-03] MEDS: GABAPENTIN 300 MG CAPSULE PO SCH (09:42)
[2021-01-03] MEDS: OMEPRAZOLE ODT 20 MG TABLET PER TUBE SCH ×2 (09:42→20:47)
[2021-01-03] MEDS: METOPROLOL TARTRATE 100 MG TABLET PO SCH ×2 (09:42→20:47)
[2021-01-03] MEDS: ASCORBIC ACID 500 MG TABLET PO SCH ×2 (09:42→20:47)
[2021-01-03] MEDS: TAMSULOSIN 0.4 MG CAPSULE PO SCH (09:42)
[2021-01-03] MEDS ORDERED: POTASSIUM CHLORIDE 20 MEQ PACK PO ONE (09:52)
[2021-01-03] MEDS: LATANOPROST 0.005% OPH SOLN 2.5 ML BOTTLE BOTH EYES SCH (21:00)
[2021-01-03 21:44] VITALS: BP 130/93
== END 2021-01-03 21:03 | disposition hospice, home (50) | DRG 871 ==
LOC: EDUNIT# → EDBD → N.ED 19:59 → SUATTDRO 12-27 00:29 → N.EDINP 12-27 00:29 → N.TELES 12-27 04:15
PROVIDERS: ADMIT Internal Medicine; ATTEND Internal Medicine Nephrology